=== PATIENT | female | born 1960 | race African-American/Black ===

== ENCOUNTER 2018-09-17 11:55 | Inpatient (IN) | payer MEDICAID ==
[~2018-09-17] VITALS: Ht 154.9 cm; Wt 41.7 kg
[2018-09-17] MEDS ORDERED: IPRATROPIUM BROMIDE (0.02%) 0.5MG/2.5ML NEB HHN STA (13:38)
[2018-09-17] MEDS ORDERED: PREDNISONE 20MG TABLET PO STA (13:38)
[2018-09-17] MEDS ORDERED: ALBUTEROL (0.083%) 2.5MG/3ML NEB HHN STA (13:38)
[2018-09-17 14:04] LABS: EOSINOPHILS % 0.1 % (0.0-5.0); HEMATOCRIT. 59.9 % (36.0-48.0); HEMOGLOBIN. 20.2 g/dL (12.0-16.0); LYMPHOCYTES % 16.1 % (20.0-50.0); MEAN CORPUSCULAR HEMOGLOBIN 31.4 pg (28.0-32.0); MEAN CORPUSCULAR VOLUME 93.3 fL (81.0-99.0); MEAN PLATELET VOLUME 8.1 fl (7.4-10.4); MONOCYTES % 9.6 % (2.0-8.0); NEUTROPHILS % 73.2 % (40.0-76.0); PLATELET 221 x1000/uL (130-400); RED BLOOD CELL COUNT 6.42 mill/uL (4.2-5.4); RED CELL DISTRIBUTION WIDTH 15.3 % (11.6-14.6)
[2018-09-17 14:11] LABS: CHLORIDE 98 mEq/L (98-107)
[2018-09-17 14:12] LABS: INR 1.2; PROTHROMBIN TIME 12.1 sec (9.6-11.0)
[2018-09-17] MEDS ORDERED: METHYLPREDNISOLONE SOD SUCC 40 MG/ML VIAL IV ONE (19:30)
[2018-09-17] MEDS ORDERED: IPRATROPIUM/ALBUTEROL 0.5-3(2.5)MG/3ML NEB HHN ONE (19:30)
[2018-09-17] MEDS ORDERED: MORPHINE SULFATE 2 MG/ML CPJ (NOT FOR IM USE) IV ONE (20:00)
[2018-09-17] MEDS ORDERED: MORPHINE SULFATE 4 MG/ML CPJ (NOT FOR IM USE) IV NR (20:05)
[2018-09-17] MEDS ORDERED: SODIUM POLYSTYRENE SULFONATE 15 G/60 ML BOT PO NR (20:30)
[2018-09-17 22:30] VITALS: BP 122/87
[2018-09-17 22:40] VITALS: BP 122/87
[2018-09-17] MEDS ORDERED: ACETAMINOPHEN 325MG TABLET PO PRN (23:15)
[2018-09-17] MEDS ORDERED: IPRATROPIUM/ALBUTEROL 0.5-3(2.5)MG/3ML NEB INH PRN (23:15)
[2018-09-17] MEDS ORDERED: ONDANSETRON HCL 4MG/2ML INJ IV PRN (23:15)
[2018-09-17] MEDS ORDERED: DOCUSATE SODIUM 100MG CAPSULE PO PRN (23:15)
[2018-09-17] MEDS ORDERED: MAGNESIUM/ALUMINUM HYDROXIDE/SIMETHICONE 30ML UDC PO PRN (23:15)
[2018-09-18] VITALS (7 sets, daily range): BP systolic 129–160; BP diastolic 89–113
[2018-09-18] MEDS: HYDROCODONE/ACETAMINOPHEN 5/325MG TABLET PO PRN ×2 (02:40→20:45)
[2018-09-18 05:45] LABS: HEMATOCRIT. 54.8 % (36.0-48.0); HEMOGLOBIN. 18.1 g/dL (12.0-16.0); MEAN CORPUSCULAR HEMOGLOBIN 31.3 pg (28.0-32.0); MEAN CORPUSCULAR VOLUME 94.5 fL (81.0-99.0); MEAN PLATELET VOLUME 8.7 fl (7.4-10.4); PLATELET 191 x1000/uL (130-400); RED BLOOD CELL COUNT 5.79 mill/uL (4.2-5.4)
[2018-09-18] MEDS: METHYLPREDNISOLONE SOD SUCC 40 MG/ML VIAL IV SCH ×3 (06:40→21:17)
[2018-09-18 06:44] LABS: CHLORIDE 97 mEq/L (98-107)
[2018-09-18 07:08] LABS: LDL CHOLESTEROL 67 mg/dL (5-100)
[2018-09-18 07:10] LABS: CREATINE KINASE 62 IU/L (26-192); CREATINE KINASE MB FRACTION 3.4 ng/mL (0.5-3.6); HDL CHOLESTEROL 68 mg/dL (40-59)
[2018-09-18] MEDS ORDERED: ACET-2708 PO (08:02)
[2018-09-18] MEDS ORDERED: FERR325T6 MT (08:07)
[2018-09-18] MEDS: CLONIDINE 0.1MG TABLET PO PRN ×2 (09:23→21:17)
[2018-09-18] MEDS: ENOXAPARIN 40MG/0.4ML SYR SUBCUT SCH (09:24)
[2018-09-18] MEDS ORDERED: IPRATROPIUM/ALBUTEROL 0.5-3(2.5)MG/3ML NEB HHN PRN (09:45)
[2018-09-18] MEDS: GUAIFENESIN 600MG ER TABLET PO SCH ×2 (13:54→20:44)
[2018-09-18] MEDS ORDERED: MAGNESIUM 1 G PREMIX 100 ML IV SCH (14:00)
[2018-09-18 15:38] LABS: CLARITY URINE CLOUDY (CLEAR); COLOR URINE YELLOW (YELLOW); KETONES URINE NEGATIVE (NEGATIVE); LEUKOCYTE ESTERASE URINE 1+ (NEGATIVE); NITRITE URINE POSITIVE (NEGATIVE); OCCULT BLOOD URINE NEGATIVE (NEGATIVE); PROTEIN URINE NEGATIVE (NEGATIVE); SPECIFIC GRAVITY URINE 1.011 (1.005-1.030)
[2018-09-18 15:39] LABS: CREATINE KINASE 62 IU/L (26-192)
[2018-09-18 15:40] LABS: CREATINE KINASE MB FRACTION 3.5 ng/mL (0.5-3.6)
[2018-09-18 15:51] LABS: *BARBITURATES SCREEN URINE NEGATIVE (NEGATIVE); CANNABINOID URINE SCREEN NEGATIVE (NEGATIVE); OPIATES URINE SCREEN PRESUMTIVE POSITIVE (NEGATIVE); PHENCYCLIDINE URINE SCREEN NEGATIVE (NEGATIVE)
[2018-09-18 15:52] LABS: *BENZODIAZEPINES SCREEN URINE NEGATIVE (NEGATIVE); *COCAINE SCREEN URINE PRESUMTIVE POSITIVE (NEGATIVE); METHADONE URINE SCREEN NEGATIVE (NEGATIVE)
[2018-09-18 15:53] LABS: *AMPHETAMINES SCREEN URINE NEGATIVE (NEGATIVE)
[2018-09-18 16:37] LABS: PLATELET ESTIMATE NORMAL
[2018-09-18] MEDS: IPRATROPIUM/ALBUTEROL 0.5-3(2.5)MG/3ML NEB HHN SCH ×3 (17:00→21:32)
[2018-09-18] MEDS: CEFTRIAXONE 1 G PREMIX 50 ML IV SCH (18:15)
[2018-09-19] VITALS: BP 137/91
[2018-09-19] MEDS: IPRATROPIUM/ALBUTEROL 0.5-3(2.5)MG/3ML NEB HHN SCH ×6 (00:22→21:24)
[2018-09-19 04:00] VITALS: BP 135/88
[2018-09-19] MEDS: METHYLPREDNISOLONE SOD SUCC 40 MG/ML VIAL IV SCH (05:35)
[2018-09-19 06:04] LABS: BASOPHILS % 0.1 % (0.0-2.0); HEMATOCRIT. 50.7 % (36.0-48.0); HEMOGLOBIN. 16.8 g/dL (12.0-16.0); LYMPHOCYTES % 10.6 % (20.0-50.0); MEAN CORPUSCULAR HEMOGLOBIN 31.3 pg (28.0-32.0); MEAN CORPUSCULAR VOLUME 94.3 fL (81.0-99.0); MEAN PLATELET VOLUME 8.5 fl (7.4-10.4); MONOCYTES % 4.3 % (2.0-8.0); PLATELET 180 x1000/uL (130-400); RED BLOOD CELL COUNT 5.38 mill/uL (4.2-5.4); RED CELL DISTRIBUTION WIDTH 14.8 % (11.6-14.6)
[2018-09-19 06:25] LABS: CHLORIDE 98 mEq/L (98-107)
[2018-09-19 08:00] VITALS: BP 139/94
[2018-09-19] MEDS: GUAIFENESIN 600MG ER TABLET PO SCH ×2 (08:18→20:31)
[2018-09-19] MEDS: ENOXAPARIN 40MG/0.4ML SYR SUBCUT SCH (08:18)
[2018-09-19 08:54] LABS: BG BASE EXCESS 5.4 mmol/L (-2.0-2.0); BG CARBOXYHEMOGLOBIN 1.1 % (0.5-1.5); BG DEOXYHEMOGLOBIN 7.6 % (0.0-5.0); BG FRACTION INSPIRED OXYGEN 21; BG METHEMOGLOBIN 0.4 % (0.0-1.5); BG OXYGEN SATURATION 92.3 % (92.0-98.5); BG OXYHEMOGLOBIN 90.9 % (94.0-97.0); BG PCO2 64.5 mmHg (35.0-45.0); BG PO2 68.4 mmHg (75.0-100.0); BG SAMPLE SITE RIGHT BRACHIAL; BG VENT MODE ROOM AIR
[2018-09-19 11:59] VITALS: BP 116/78
[2018-09-19 16:00] VITALS: BP 128/91
[2018-09-19] MEDS: CEFTRIAXONE 1 G PREMIX 50 ML IV SCH (17:53)
[2018-09-19 20:00] VITALS: BP 140/85
[2018-09-20] VITALS (9 sets, daily range): BP systolic 2–171; BP diastolic 89–109
[2018-09-20] MEDS: CLONIDINE 0.1MG TABLET PO PRN ×3 (00:31→18:04)
[2018-09-20] MEDS: IPRATROPIUM/ALBUTEROL 0.5-3(2.5)MG/3ML NEB HHN SCH ×5 (01:27→16:00)
[2018-09-20 07:06] LABS: BASOPHILS % 0.1 % (0.0-2.0); EOSINOPHILS % 0.1 % (0.0-5.0); HEMOGLOBIN. 16.1 g/dL (12.0-16.0); LYMPHOCYTES % 22.6 % (20.0-50.0); MEAN CORPUSCULAR HEMOGLOBIN 30.5 pg (28.0-32.0); MEAN CORPUSCULAR VOLUME 94.7 fL (81.0-99.0); MEAN PLATELET VOLUME 8.7 fl (7.4-10.4); MONOCYTES % 8.6 % (2.0-8.0); NEUTROPHILS % 68.6 % (40.0-76.0); PLATELET 155 x1000/uL (130-400); RED BLOOD CELL COUNT 5.28 mill/uL (4.2-5.4); RED CELL DISTRIBUTION WIDTH 14.9 % (11.6-14.6)
[2018-09-20 07:15] LABS: CHLORIDE 98 mEq/L (98-107)
[2018-09-20] MEDS ORDERED: PREDNISONE 20MG TABLET PO SCH (09:00)
[2018-09-20] MEDS: ENOXAPARIN 40MG/0.4ML SYR SUBCUT SCH (09:50)
[2018-09-20] MEDS: GUAIFENESIN 600MG ER TABLET PO SCH (09:50)
== END 2018-09-20 20:50 | disposition home or self-care (01) | DRG 816 ==
LOC: ER 11:55 → 8WST 18:01 → EDBEDREQ 18:03 → ENRESERV 20:00
PROVIDERS: ADMIT Internal Medicine; ATTEND Internal Medicine
PROC: 5A09357 Assistance with Respiratory Ventilation, Less than 24 Consecutive Hours, Continuous Positive Airway Pressure (ICD-10-PCS; principal; 2018-09-19)
DX: T40.5X1A Poisoning by cocaine, accidental (unintentional), initial encounter (principal); J96.21 Acute and chronic respiratory failure with hypoxia; D70.9 Neutropenia, unspecified; E87.5 Hyperkalemia; J68.0 Bronchitis and pneumonitis due to chemicals, gases, fumes and vapors; D75.1 Secondary polycythemia; E44.1 Mild protein-calorie malnutrition; E87.70 Fluid overload, unspecified; I10 Essential (primary) hypertension; N39.0 Urinary tract infection, site not specified; F14.90 Cocaine use, unspecified, uncomplicated; D25.9 Leiomyoma of uterus, unspecified; E11.9 Type 2 diabetes mellitus without complications; F17.210 Nicotine dependence, cigarettes, uncomplicated; R91.1 Solitary pulmonary nodule; Z71.6 Tobacco abuse counseling; Y92.89 Other specified places as the place of occurrence of the external cause; Z79.84 Long term (current) use of oral hypoglycemic drugs
CPT/HCPCS: 36415; 36600; 71250; 74176; 80048; 80061; 80305; 82375; 82550; 82553; 82805; 83735; 83880; 84443; 84484; 93005; 93970; 94640; 94660; 96374; 96375; 97116; 97162; 99285; J0696; J1650; J2270; J2920; J3475; J7040; J7512; J7611; J7620

== ENCOUNTER 2018-12-01 23:21 | Inpatient (IN) | payer MEDICAID ==
[~2018-12-01] VITALS: Ht 154.9 cm; Wt 41.7 kg
[~2018-12-01 23:21] MED LIST: ACET-2708 PO; FERR325T6 MT
[2018-12-02] MEDS ORDERED: ONDANSETRON HCL 4MG/2ML INJ IV STA (00:02)
[2018-12-02] MEDS ORDERED: IPRATROPIUM BROMIDE (0.02%) 0.5MG/2.5ML NEB HHN STA (00:02)
[2018-12-02] MEDS ORDERED: ALBUTEROL (0.083%) 2.5MG/3ML NEB HHN STA (00:02)
[2018-12-02] MEDS ORDERED: MAGNESIUM 2 G PREMIX 50 ML IV ONE (00:15)
[2018-12-02 00:25] LABS: CHLORIDE 99 mEq/L (98-107)
[2018-12-02 00:29] LABS: BASOPHILS % 0.9 % (0.0-2.0); EOSINOPHILS % 0.6 % (0.0-5.0); LYMPHOCYTES % 21.9 % (20.0-50.0); MEAN PLATELET VOLUME 8.4 fl (7.4-10.4); MONOCYTES % 8.6 % (2.0-8.0); PLATELET 167 x1000/uL (130-400); RED BLOOD CELL COUNT 5.32 mill/uL (4.2-5.4); RED CELL DISTRIBUTION WIDTH 15.7 % (11.6-14.6)
[2018-12-02 00:54] LABS: BG BASE EXCESS 1.5 mmol/L (-2.0-2.0); BG CARBOXYHEMOGLOBIN 4.2 % (0.5-1.5); BG DEOXYHEMOGLOBIN 16.6 % (0.0-5.0); BG FRACTION INSPIRED OXYGEN 40; BG HCO3 ACT 30.9 mmol/L (22.0-26.0); BG METHEMOGLOBIN 0.1 % (0.0-1.5); BG OXYGEN SATURATION 82.7 % (92.0-98.5); BG OXYHEMOGLOBIN 79.1 % (94.0-97.0); BG PCO2 69.8 mmHg (35.0-45.0); BG PH 7.264 (7.350-7.450); BG PO2 53.4 mmHg (75.0-100.0); BG SAMPLE SITE RIGHT RADIAL; BG TOTAL HEMOGLOBIN 16.3 g/dL (12.0-18.0); BG VENT MODE MASK - SIMPLE
[2018-12-02] MEDS ORDERED: FUROSEMIDE 40MG/4ML VIAL IVP ONE (01:15)
[2018-12-02] MEDS ORDERED: ALBUTEROL (0.5%) 2.5MG/0.5ML NEB HHN ONE (04:45)
[2018-12-02 05:29] LABS: BG BASE EXCESS 5.5 mmol/L (-2.0-2.0); BG CARBOXYHEMOGLOBIN 3.2 % (0.5-1.5); BG DEOXYHEMOGLOBIN 9.6 % (0.0-5.0); BG FRACTION INSPIRED OXYGEN 40; BG HCO3 ACT 36.8 mmol/L (22.0-26.0); BG METHEMOGLOBIN 0.2 % (0.0-1.5); BG OXYGEN SATURATION 90.1 % (92.0-98.5); BG PCO2 85.7 mmHg (35.0-45.0); BG PH 7.251 (7.350-7.450); BG PO2 66.4 mmHg (75.0-100.0); BG SAMPLE SITE RIGHT RADIAL; BG TOTAL HEMOGLOBIN 17.1 g/dL (12.0-18.0); BG VENT MODE MASK - SIMPLE
[2018-12-02] MEDS ORDERED: CLONIDINE 0.1MG TABLET PO ONE (09:00)
[2018-12-02 10:13] VITALS: BP 183/77
[2018-12-02] MEDS ORDERED: IPRATROPIUM/ALBUTEROL 0.5-3(2.5)MG/3ML NEB INH PRN (10:45)
[2018-12-02] MEDS ORDERED: HYDROCODONE/ACETAMINOPHEN 5/325MG TABLET PO PRN (10:45)
[2018-12-02] MEDS ORDERED: MAGNESIUM/ALUMINUM HYDROXIDE/SIMETHICONE 30ML UDC PO PRN (10:45)
[2018-12-02] MEDS ORDERED: DIPHENHYDRAMINE 50MG/ML VIAL IV PRN (10:45)
[2018-12-02] MEDS ORDERED: ONDANSETRON HCL 4MG/2ML INJ IV PRN (10:45)
[2018-12-02] MEDS ORDERED: GUAIFENESIN 200MG/10ML SUGAR FREE UDC PO PRN (10:45)
[2018-12-02] MEDS ORDERED: DOCUSATE SODIUM 100MG CAPSULE PO PRN (10:45)
[2018-12-02 10:58] VITALS: BP 183/97
[2018-12-02] MEDS: ENOXAPARIN 40MG/0.4ML SYR SUBCUT SCH (11:46)
[2018-12-02 12:32] VITALS: BP 173/145
[2018-12-02] MEDS ORDERED: DEXTROSE 50% WATER 50ML SYRINGE IV PRN (12:45)
[2018-12-02] MEDS: BLOOD SUGAR DIAGNOSTIC STRIP TEST SCH ×3 (13:06→21:37)
[2018-12-02] MEDS: INSULIN LISPRO 100 UNITS/ML SUBCUT SCH ×3 (13:06→21:00)
[2018-12-02] MEDS: CLONIDINE 0.1MG TABLET PO PRN (15:02)
[2018-12-02] MEDS: NITROGLYCERIN OINT 1GM/INCH UDPKT TD SCH ×2 (15:02→21:44)
[2018-12-02 15:59] VITALS: BP 132/90
[2018-12-02 16:44] LABS: CREATINE KINASE MB FRACTION 5.7 ng/mL (0.5-3.6)
[2018-12-02] MEDS ORDERED: FUROSEMIDE 40MG/4ML VIAL IV SCH (17:15)
[2018-12-02] MEDS: FUROSEMIDE 100MG/10ML VIAL IV SCH (17:18)
[2018-12-02] MEDS: METHYLPREDNISOLONE SOD SUCC 40 MG/ML VIAL IV SCH (18:04)
[2018-12-02 20:00] VITALS: BP 138/97
[2018-12-02] MEDS: BUDESONIDE 0.5MG/2ML NEB HHN SCH (20:12)
[2018-12-02] MEDS: IPRATROPIUM/ALBUTEROL 0.5-3(2.5)MG/3ML NEB HHN SCH ×2 (20:13→23:48)
[2018-12-02] MEDS: AMLODIPINE 5MG TABLET PO SCH (21:44)
[2018-12-02 21:56] LABS: *AMPHETAMINES SCREEN URINE NEGATIVE (NEGATIVE); *BARBITURATES SCREEN URINE NEGATIVE (NEGATIVE); *BENZODIAZEPINES SCREEN URINE NEGATIVE (NEGATIVE); CANNABINOID URINE SCREEN NEGATIVE (NEGATIVE)
[2018-12-02 21:57] LABS: *COCAINE SCREEN URINE PRESUMTIVE POSITIVE (NEGATIVE); METHADONE URINE SCREEN NEGATIVE (NEGATIVE); OPIATES URINE SCREEN NEGATIVE (NEGATIVE); PHENCYCLIDINE URINE SCREEN NEGATIVE (NEGATIVE)
[2018-12-03] VITALS (16 sets, daily range): BP systolic 117–147; BP diastolic 51–99
[2018-12-03 00:25] LABS: CREATINE KINASE MB FRACTION 4.8 ng/mL (0.5-3.6)
[2018-12-03] MEDS: METHYLPREDNISOLONE SOD SUCC 40 MG/ML VIAL IV SCH ×2 (01:23→10:17)
[2018-12-03] MEDS: IPRATROPIUM/ALBUTEROL 0.5-3(2.5)MG/3ML NEB HHN SCH ×5 (03:49→20:58)
[2018-12-03] MEDS: FUROSEMIDE 100MG/10ML VIAL IV SCH ×2 (05:56→17:38)
[2018-12-03] MEDS: NITROGLYCERIN OINT 1GM/INCH UDPKT TD SCH ×3 (05:56→17:39)
[2018-12-03 06:20] LABS: HEMATOCRIT. 53.1 % (36.0-48.0); MEAN CORPUSCULAR HEMOGLOBIN 29.7 pg (28.0-32.0); MEAN CORPUSCULAR VOLUME 92.8 fL (81.0-99.0); MEAN PLATELET VOLUME 8.5 fl (7.4-10.4); PLATELET 158 x1000/uL (130-400); RED BLOOD CELL COUNT 5.72 mill/uL (4.2-5.4); RED CELL DISTRIBUTION WIDTH 15.6 % (11.6-14.6)
[2018-12-03] MEDS: BLOOD SUGAR DIAGNOSTIC STRIP TEST SCH ×4 (06:48→21:04)
[2018-12-03] MEDS: ASPIRIN 81MG EC TABLET PO SCH (07:54)
[2018-12-03] MEDS: ENOXAPARIN 40MG/0.4ML SYR SUBCUT SCH (07:55)
[2018-12-03] MEDS: INSULIN LISPRO 100 UNITS/ML SUBCUT SCH ×3 (08:04→21:00)
[2018-12-03] MEDS: BUDESONIDE 0.5MG/2ML NEB HHN SCH ×2 (08:10→20:59)
[2018-12-03] MEDS: AMLODIPINE 5MG TABLET PO SCH ×2 (08:17→21:01)
[2018-12-03 09:51] LABS: CHLORIDE 91 mEq/L (98-107)
[2018-12-03 10:03] LABS: BG BASE EXCESS 12.6 mmol/L (-2.0-2.0); BG CARBOXYHEMOGLOBIN 1.9 % (0.5-1.5); BG FRACTION INSPIRED OXYGEN 44; BG HCO3 ACT 45.5 mmol/L (22.0-26.0); BG METHEMOGLOBIN 0.4 % (0.0-1.5); BG OXYGEN SATURATION 96.9 % (92.0-98.5); BG OXYHEMOGLOBIN 94.7 % (94.0-97.0); BG PCO2 100.4 mmHg (35.0-45.0); BG PH 7.274 (7.350-7.450); BG PO2 96.8 mmHg (75.0-100.0); BG SAMPLE SITE RIGHT BRACHIAL; BG TOTAL HEMOGLOBIN 17.2 g/dL (12.0-18.0); BG VENT MODE NASAL CANNULA
[2018-12-03 14:18] LABS: BG BASE EXCESS 11.2 mmol/L (-2.0-2.0); BG BILEVEL POS AIRWAY PRESSURE 18/5; BG CARBOXYHEMOGLOBIN 1.7 % (0.5-1.5); BG DEOXYHEMOGLOBIN 8.5 % (0.0-5.0); BG FRACTION INSPIRED OXYGEN 28; BG HCO3 ACT 41.5 mmol/L (22.0-26.0); BG METHEMOGLOBIN 0.3 % (0.0-1.5); BG OXYGEN SATURATION 91.3 % (92.0-98.5); BG OXYHEMOGLOBIN 89.5 % (94.0-97.0); BG PCO2 79.6 mmHg (35.0-45.0); BG PH 7.335 (7.350-7.450); BG PO2 65.1 mmHg (75.0-100.0); BG SAMPLE SITE RIGHT BRACHIAL; BG TOTAL HEMOGLOBIN 16.7 g/dL (12.0-18.0); BG VENT MODE NASAL CPAP
[2018-12-03 14:35] LABS: PLATELET ESTIMATE NORMAL
[2018-12-03] MEDS: METHYLPREDNISOLONE SOD SUCC 125 MG/2 ML VIAL IV SCH (17:37)
[2018-12-03] MEDS: ACETAMINOPHEN 325MG TABLET PO PRN (17:52)
[2018-12-04] VITALS (15 sets, daily range): BP systolic 93–166; BP diastolic 56–99
[2018-12-04] MEDS: IPRATROPIUM/ALBUTEROL 0.5-3(2.5)MG/3ML NEB HHN SCH ×6 (00:57→22:00)
[2018-12-04] MEDS: METHYLPREDNISOLONE SOD SUCC 125 MG/2 ML VIAL IV SCH ×2 (03:11→08:28)
[2018-12-04 06:51] LABS: BASOPHILS % 0.2 % (0.0-2.0); HEMOGLOBIN. 16.6 g/dL (12.0-16.0); LYMPHOCYTES % 8.9 % (20.0-50.0); MEAN CORPUSCULAR HEMOGLOBIN 29.5 pg (28.0-32.0); MEAN CORPUSCULAR VOLUME 90.8 fL (81.0-99.0); MEAN PLATELET VOLUME 8.9 fl (7.4-10.4); MONOCYTES % 2.9 % (2.0-8.0); PLATELET 167 x1000/uL (130-400); RED BLOOD CELL COUNT 5.61 mill/uL (4.2-5.4); RED CELL DISTRIBUTION WIDTH 15.4 % (11.6-14.6)
[2018-12-04 07:00] LABS: CHLORIDE 90 mEq/L (98-107)
[2018-12-04] MEDS: NITROGLYCERIN OINT 1GM/INCH UDPKT TD SCH ×3 (07:22→22:00)
[2018-12-04] MEDS: FUROSEMIDE 100MG/10ML VIAL IV SCH ×3 (07:22→16:37)
[2018-12-04] MEDS: ACETAMINOPHEN 325MG TABLET PO PRN (07:32)
[2018-12-04] MEDS: INSULIN LISPRO 100 UNITS/ML SUBCUT SCH ×4 (08:00→21:59)
[2018-12-04] MEDS: BUDESONIDE 0.5MG/2ML NEB HHN SCH (08:11)
[2018-12-04] MEDS: ENOXAPARIN 40MG/0.4ML SYR SUBCUT SCH (08:21)
[2018-12-04] MEDS: AMLODIPINE 5MG TABLET PO SCH ×2 (08:26→20:39)
[2018-12-04] MEDS: ASPIRIN 81MG EC TABLET PO SCH (08:26)
[2018-12-04] MEDS: BLOOD SUGAR DIAGNOSTIC STRIP TEST SCH ×4 (08:28→20:39)
[2018-12-04] MEDS: CLONIDINE 0.1MG TABLET PO PRN (08:40)
[2018-12-04 09:48] LABS: BG BASE EXCESS 15.4 mmol/L (-2.0-2.0); BG CARBOXYHEMOGLOBIN 1.3 % (0.5-1.5); BG DEOXYHEMOGLOBIN 7.1 % (0.0-5.0); BG FRACTION INSPIRED OXYGEN 36; BG HCO3 ACT 46.7 mmol/L (22.0-26.0); BG METHEMOGLOBIN 0.6 % (0.0-1.5); BG OXYGEN SATURATION 92.8 % (92.0-98.5); BG PCO2 85.1 mmHg (35.0-45.0); BG PH 7.357 (7.350-7.450); BG PO2 67.2 mmHg (75.0-100.0); BG SAMPLE SITE RIGHT BRACHIAL; BG TOTAL HEMOGLOBIN 17.8 g/dL (12.0-18.0); BG VENT MODE NASAL CANNULA
[2018-12-04] MEDS ORDERED: CEFEPIME 1,000 MG in DEXTROSE 5% WATER 50 ML IV SCH (12:00)
[2018-12-04] MEDS ORDERED: METRONIDAZOLE 500 MG PREMIX 100 ML IV SCH (13:00)
[2018-12-04] MEDS ORDERED: TERBUTALINE SULFATE 1MG/ML VIAL SUBCUT NR (14:30)
[2018-12-04] MEDS: PREDNISONE 20MG TABLET PO SCH (16:34)
[2018-12-05] VITALS (15 sets, daily range): BP systolic 116–155; BP diastolic 77–104
[2018-12-05] MEDS: IPRATROPIUM/ALBUTEROL 0.5-3(2.5)MG/3ML NEB HHN SCH ×6 (02:15→21:33)
[2018-12-05] MEDS: NITROGLYCERIN OINT 1GM/INCH UDPKT TD SCH ×3 (06:21→20:49)
[2018-12-05 07:26] LABS: BASOPHILS % 0.1 % (0.0-2.0); HEMATOCRIT. 51.2 % (36.0-48.0); HEMOGLOBIN. 16.7 g/dL (12.0-16.0); LYMPHOCYTES % 11.7 % (20.0-50.0); MEAN CORPUSCULAR HEMOGLOBIN 29.4 pg (28.0-32.0); MEAN CORPUSCULAR VOLUME 90.3 fL (81.0-99.0); MEAN PLATELET VOLUME 8.9 fl (7.4-10.4); MONOCYTES % 7.9 % (2.0-8.0); NEUTROPHILS % 80.3 % (40.0-76.0); PLATELET 185 x1000/uL (130-400); RED BLOOD CELL COUNT 5.67 mill/uL (4.2-5.4); RED CELL DISTRIBUTION WIDTH 15.4 % (11.6-14.6)
[2018-12-05] MEDS: INSULIN LISPRO 100 UNITS/ML SUBCUT SCH ×4 (08:00→21:00)
[2018-12-05] MEDS: BLOOD SUGAR DIAGNOSTIC STRIP TEST SCH ×4 (08:04→21:00)
[2018-12-05 08:13] LABS: CHLORIDE 86 mEq/L (98-107)
[2018-12-05] MEDS: FUROSEMIDE 100MG/10ML VIAL IV SCH ×2 (09:00→18:22)
[2018-12-05] MEDS: AMLODIPINE 5MG TABLET PO SCH ×2 (09:01→20:48)
[2018-12-05] MEDS: ASPIRIN 81MG EC TABLET PO SCH (09:01)
[2018-12-05] MEDS: PREDNISONE 20MG TABLET PO SCH ×2 (09:01→18:22)
[2018-12-05] MEDS: TERBUTALINE SULFATE 1MG/ML VIAL SUBCUT SCH (09:02)
[2018-12-05] MEDS: ENOXAPARIN 40MG/0.4ML SYR SUBCUT SCH (09:02)
[2018-12-05 15:20] LABS: BG BASE EXCESS 18.3 mmol/L (-2.0-2.0); BG CARBOXYHEMOGLOBIN 1.5 % (0.5-1.5); BG DEOXYHEMOGLOBIN 12.8 % (0.0-5.0); BG FRACTION INSPIRED OXYGEN 21; BG HCO3 ACT 46.4 mmol/L (22.0-26.0); BG METHEMOGLOBIN 0.4 % (0.0-1.5); BG OXYHEMOGLOBIN 85.3 % (94.0-97.0); BG PCO2 64.5 mmHg (35.0-45.0); BG PH 7.475 (7.350-7.450); BG PO2 49.4 mmHg (75.0-100.0); BG SAMPLE SITE RIGHT RADIAL; BG TOTAL HEMOGLOBIN 17.2 g/dL (12.0-18.0); BG VENT MODE ROOM AIR
[2018-12-06] VITALS (8 sets, daily range): BP systolic 130–148; BP diastolic 89–111
[2018-12-06] MEDS: IPRATROPIUM/ALBUTEROL 0.5-3(2.5)MG/3ML NEB HHN SCH ×4 (04:00→11:50)
[2018-12-06] MEDS: NITROGLYCERIN OINT 1GM/INCH UDPKT TD SCH (06:00)
[2018-12-06] MEDS: FUROSEMIDE 100MG/10ML VIAL IV SCH ×2 (06:51→06:52)
[2018-12-06] MEDS: INSULIN LISPRO 100 UNITS/ML SUBCUT SCH ×2 (06:52→12:48)
[2018-12-06] MEDS: BLOOD SUGAR DIAGNOSTIC STRIP TEST SCH ×2 (06:52→12:30)
[2018-12-06 07:08] LABS: BASOPHILS % 0.3 % (0.0-2.0); CHLORIDE 82 mEq/L (98-107); HEMATOCRIT. 53.4 % (36.0-48.0); HEMOGLOBIN. 17.5 g/dL (12.0-16.0); LYMPHOCYTES % 13.1 % (20.0-50.0); MEAN CORPUSCULAR HEMOGLOBIN 29.5 pg (28.0-32.0); MEAN CORPUSCULAR VOLUME 90.1 fL (81.0-99.0); MONOCYTES % 9.1 % (2.0-8.0); NEUTROPHILS % 77.5 % (40.0-76.0); PLATELET 169 x1000/uL (130-400); RED BLOOD CELL COUNT 5.93 mill/uL (4.2-5.4); RED CELL DISTRIBUTION WIDTH 15.6 % (11.6-14.6)
[2018-12-06] MEDS ORDERED: AMLO5TAB88 PO (07:51)
[2018-12-06] MEDS ORDERED: ALBU6.7H9 INH (07:51)
[2018-12-06] MEDS ORDERED: BENZ-16 MT (07:51)
[2018-12-06] MEDS ORDERED: FLUT1DIS2 INH (07:51)
[2018-12-06] MEDS ORDERED: PRED10TA MT (07:51)
[2018-12-06] MEDS ORDERED: P20 MT (07:51)
[2018-12-06] MEDS ORDERED: FURO-151 MT (07:51)
[2018-12-06] MEDS: AMLODIPINE 5MG TABLET PO SCH (08:31)
[2018-12-06] MEDS: PREDNISONE 20MG TABLET PO SCH (08:31)
[2018-12-06] MEDS: ASPIRIN 81MG EC TABLET PO SCH (08:31)
[2018-12-06] MEDS: TERBUTALINE SULFATE 1MG/ML VIAL SUBCUT SCH (08:32)
[2018-12-06] MEDS: ENOXAPARIN 40MG/0.4ML SYR SUBCUT SCH (08:32)
[2018-12-06] MEDS ORDERED: FUROSEMIDE 40MG/4ML VIAL IV SCH (09:00)
[2018-12-06] MEDS ORDERED: CLONIDINE 0.1MG TABLET PO SCH (12:00)
== END 2018-12-06 13:21 | disposition home or self-care (01) | DRG 816 ==
LOC: ER 23:21 → 7WST 12-02 04:39 → EDBEDREQTM 12-02 04:54 → EDBEDREQ 12-02 04:54 → ENRESERV 12-02 08:55 → MICUSO 12-03 12:27 → 5EST 12-03 18:40
PROVIDERS: ADMIT Internal Medicine; ATTEND Internal Medicine
PROC: 5A09357 Assistance with Respiratory Ventilation, Less than 24 Consecutive Hours, Continuous Positive Airway Pressure (ICD-10-PCS; principal; 2018-12-03)
DX: T40.5X1A Poisoning by cocaine, accidental (unintentional), initial encounter (principal); J96.21 Acute and chronic respiratory failure with hypoxia; I50.43 Acute on chronic combined systolic (congestive) and diastolic (congestive) heart failure; E87.2 Acidosis; D75.1 Secondary polycythemia; E87.1 Hypo-osmolality and hyponatremia; I07.1 Rheumatic tricuspid insufficiency; Y92.89 Other specified places as the place of occurrence of the external cause; I27.20 Pulmonary hypertension, unspecified; J68.0 Bronchitis and pneumonitis due to chemicals, gases, fumes and vapors; R74.0 Nonspecific elevation of levels of transaminase and lactic acid dehydrogenase [LDH]; F14.10 Cocaine abuse, uncomplicated; I11.0 Hypertensive heart disease with heart failure; E78.5 Hyperlipidemia, unspecified; E11.9 Type 2 diabetes mellitus without complications; F17.210 Nicotine dependence, cigarettes, uncomplicated; J96.22 Acute and chronic respiratory failure with hypercapnia; Z79.82 Long term (current) use of aspirin; Z79.899 Other long term (current) drug therapy; Z99.81 Dependence on supplemental oxygen; Z71.6 Tobacco abuse counseling; Z79.84 Long term (current) use of oral hypoglycemic drugs
CPT/HCPCS: 36415; 36600; 71045; 80048; 80076; 80305; 82375; 82550; 82553; 82805; 82962; 83036; 83735; 83880; 84100; 84484; 93005; 93306; 93970; 94618; 94640; 94644; 94660; 96361; 96374; 96375; 97162; 97165; 99291; J0692; J1650; J1815; J1940; J2405; J2920; J2930; J3105; J3475; J3490; J7050; J7060; J7512; J7611; J7620; J7626

== ENCOUNTER 2019-01-08 11:34 | Inpatient (IN) | payer MEDICAID ==
[~2019-01-08] VITALS: Ht 154.9 cm; Wt 46.3 kg
[~2019-01-08 11:34] MED LIST changes: +ALBU6.7H9 INH; +AMLO5TAB88 PO; +BENZ-16 MT; +FLUT1DIS2 INH; +FURO-151 MT; +P20 MT; +PRED10TA MT
[2019-01-08] MEDS ORDERED: METHYLPREDNISOLONE SOD SUCC 125 MG/2 ML VIAL IV STA (11:50)
[2019-01-08] MEDS ORDERED: ALBUTEROL (0.083%) 2.5MG/3ML NEB HHN STA (11:50)
[2019-01-08] MEDS ORDERED: IPRATROPIUM BROMIDE (0.02%) 0.5MG/2.5ML NEB HHN STA (11:50)
[2019-01-08 12:12] LABS: BASOPHILS % 1.7 % (0.0-2.0); EOSINOPHILS % 0.9 % (0.0-5.0); HEMATOCRIT. 52.1 % (36.0-48.0); LYMPHOCYTES % 30.9 % (20.0-50.0); MEAN CORPUSCULAR HEMOGLOBIN 27.6 pg (28.0-32.0); MEAN CORPUSCULAR VOLUME 89.7 fL (81.0-99.0); MEAN PLATELET VOLUME 8.4 fl (7.4-10.4); MONOCYTES % 14.6 % (2.0-8.0); NEUTROPHILS % 51.9 % (40.0-76.0); PLATELET 192 x1000/uL (130-400); RED BLOOD CELL COUNT 5.81 mill/uL (4.2-5.4); RED CELL DISTRIBUTION WIDTH 17.3 % (11.6-14.6)
[2019-01-08 12:18] LABS: CHLORIDE 99 mEq/L (98-107)
[2019-01-08] MEDS ORDERED: ACETAMINOPHEN 325MG TABLET PO PRN (15:00)
[2019-01-08] MEDS ORDERED: ONDANSETRON HCL 4MG/2ML INJ IV PRN (15:00)
[2019-01-08] MEDS ORDERED: BENZONATATE 100MG CAPSULE PO PRN (15:00)
[2019-01-08] MEDS ORDERED: IPRATROPIUM/ALBUTEROL 0.5-3(2.5)MG/3ML NEB HHN PRN (16:00)
[2019-01-08] MEDS ORDERED: FUROSEMIDE 40MG/4ML VIAL IVP NR (16:00)
[2019-01-08 16:52] VITALS: BP 112/69
[2019-01-08] MEDS ORDERED: FUROSEMIDE 100MG/10ML VIAL IVP SCH (17:00)
[2019-01-08] MEDS: NICOTINE 21MG PATCH TD SCH (19:19)
[2019-01-08 19:38] LABS: CLARITY URINE CLEAR (CLEAR); COLOR URINE YELLOW (YELLOW); KETONES URINE NEGATIVE (NEGATIVE); LEUKOCYTE ESTERASE URINE TRACE (NEGATIVE); NITRITE URINE NEGATIVE (NEGATIVE); OCCULT BLOOD URINE NEGATIVE (NEGATIVE); PH URINE 5.5 (4.5-8.0); PROTEIN URINE NEGATIVE (NEGATIVE); SPECIFIC GRAVITY URINE 1.008 (1.005-1.030); UROBILINOGEN URINE 0.2 E.U./dL (0.2-1.0)
[2019-01-08 19:55] LABS: *AMPHETAMINES SCREEN URINE NEGATIVE (NEGATIVE); *BARBITURATES SCREEN URINE NEGATIVE (NEGATIVE); *BENZODIAZEPINES SCREEN URINE NEGATIVE (NEGATIVE); *COCAINE SCREEN URINE PRESUMTIVE POSITIVE (NEGATIVE); METHADONE URINE SCREEN NEGATIVE (NEGATIVE); OPIATES URINE SCREEN NEGATIVE (NEGATIVE)
[2019-01-08 19:56] LABS: CANNABINOID URINE SCREEN NEGATIVE (NEGATIVE); PHENCYCLIDINE URINE SCREEN NEGATIVE (NEGATIVE)
[2019-01-08 20:00] VITALS: BP 148/85
[2019-01-08] MEDS: IPRATROPIUM BROMIDE (0.02%) 0.5MG/2.5ML NEB HHN SCH (21:17)
[2019-01-08] MEDS ORDERED: METHYLPREDNISOLONE SOD SUCC 40 MG/ML VIAL IV SCH (22:00)
[2019-01-08] MEDS: METHYLPREDNISOLONE SOD SUCC 40 MG/ML VIAL IV SCH (22:40)
[2019-01-09] VITALS (7 sets, daily range): BP systolic 114–150; BP diastolic 63–97
[2019-01-09] MEDS: IPRATROPIUM BROMIDE (0.02%) 0.5MG/2.5ML NEB HHN SCH ×7 (00:42→23:54)
[2019-01-09] MEDS: METHYLPREDNISOLONE SOD SUCC 40 MG/ML VIAL IV SCH (05:07)
[2019-01-09 07:38] LABS: HEMATOCRIT. 54.5 % (36.0-48.0); HEMOGLOBIN. 17.2 g/dL (12.0-16.0); MEAN CORPUSCULAR HEMOGLOBIN 28.2 pg (28.0-32.0); MEAN CORPUSCULAR VOLUME 89.3 fL (81.0-99.0); MEAN PLATELET VOLUME 8.4 fl (7.4-10.4); PLATELET 179 x1000/uL (130-400); RED BLOOD CELL COUNT 6.11 mill/uL (4.2-5.4); RED CELL DISTRIBUTION WIDTH 17.3 % (11.6-14.6)
[2019-01-09 08:59] LABS: CHLORIDE 95 mEq/L (98-107)
[2019-01-09] MEDS ORDERED: FUROSEMIDE 40MG/4ML VIAL IVP SCH (09:00)
[2019-01-09] MEDS: NICOTINE 21MG PATCH TD SCH (09:48)
[2019-01-09] MEDS ORDERED: METHYLPREDNISOLONE SOD SUCC 125 MG/2 ML VIAL IV SCH (12:00)
[2019-01-09 12:32] LABS: PLATELET ESTIMATE NORMAL
[2019-01-09] MEDS: AMLODIPINE 2.5MG TABLET PO SCH (12:34)
[2019-01-09] MEDS: PREDNISONE 20MG TABLET PO SCH (17:47)
[2019-01-09] MEDS: FUROSEMIDE 40MG/4ML VIAL IVP SCH (22:28)
[2019-01-10] VITALS: BP 132/91
[2019-01-10 04:00] VITALS: BP 124/90
[2019-01-10] MEDS: IPRATROPIUM BROMIDE (0.02%) 0.5MG/2.5ML NEB HHN SCH ×2 (04:34→07:40)
[2019-01-10] MEDS: PREDNISONE 20MG TABLET PO SCH (06:56)
[2019-01-10 08:00] VITALS: BP 136/94
[2019-01-10] MEDS ORDERED: ASPIRIN 81MG EC TABLET PO SCH (09:00)
[2019-01-10] MEDS: NICOTINE 21MG PATCH TD SCH (09:07)
[2019-01-10] MEDS: AMLODIPINE 2.5MG TABLET PO SCH (09:07)
[2019-01-10] MEDS: FUROSEMIDE 40MG/4ML VIAL IVP SCH (09:07)
[2019-01-10 10:56] LABS: HEMATOCRIT. 54.7 % (36.0-48.0); HEMOGLOBIN. 17.3 g/dL (12.0-16.0); MEAN CORPUSCULAR VOLUME 88.4 fL (81.0-99.0); MEAN PLATELET VOLUME 8.1 fl (7.4-10.4); PLATELET 193 x1000/uL (130-400); RED BLOOD CELL COUNT 6.19 mill/uL (4.2-5.4); RED CELL DISTRIBUTION WIDTH 17.5 % (11.6-14.6)
[2019-01-10 11:04] LABS: CHLORIDE 90 mEq/L (98-107)
[2019-01-10 12:00] VITALS: BP 123/82
[2019-01-10 14:02] LABS: PLATELET ESTIMATE NORMAL
[2019-01-11] MEDS ORDERED: FUROSEMIDE 40MG TABLET PO SCH (09:00)
== END 2019-01-10 12:20 | disposition home or self-care (01) | DRG 140 ==
LOC: ER 12:16 → 5WST 13:26 → ENRESERV 14:20
PROVIDERS: ADMIT Internal Medicine; ATTEND Internal Medicine
DX: J44.1 Chronic obstructive pulmonary disease with (acute) exacerbation (principal); J96.20 Acute and chronic respiratory failure, unspecified whether with hypoxia or hypercapnia; I50.33 Acute on chronic diastolic (congestive) heart failure; E46 Unspecified protein-calorie malnutrition; I27.20 Pulmonary hypertension, unspecified; E87.5 Hyperkalemia; I07.1 Rheumatic tricuspid insufficiency; E11.9 Type 2 diabetes mellitus without complications; D64.9 Anemia, unspecified; I31.3 Pericardial effusion (noninflammatory); E78.5 Hyperlipidemia, unspecified; F14.90 Cocaine use, unspecified, uncomplicated; F17.210 Nicotine dependence, cigarettes, uncomplicated; I11.0 Hypertensive heart disease with heart failure; I27.21 Secondary pulmonary arterial hypertension; T38.0X5A Adverse effect of glucocorticoids and synthetic analogues, initial encounter; Z99.81 Dependence on supplemental oxygen; Z90.710 Acquired absence of both cervix and uterus; Z68.1 Body mass index [BMI] 19.9 or less, adult; Y92.89 Other specified places as the place of occurrence of the external cause; Z71.6 Tobacco abuse counseling; Z79.1 Long term (current) use of non-steroidal anti-inflammatories (NSAID); Z79.899 Other long term (current) drug therapy; Z79.51 Long term (current) use of inhaled steroids
CPT/HCPCS: 36415; 71045; 80048; 80305; 83605; 83880; 84145; 84484; 93005; 94640; 94644; 96374; 99285; C1893; J1940; J2920; J2930; J7512; J7611